=== PATIENT | female | born 1990 | race Caucasian/White ===

== ENCOUNTER 2024-05-08 19:56 | Emergency (ER) | payer BC, OTHER ==
[~2024-05-08] VITALS: Ht 167.6 cm; Wt 180.0 kg
[2024-05-09 00:20] LABS: Chloride 107 mmol/L (98-107); Potassium 4.3 mmol/L (3.5-5.1); Sodium 136 mmol/L (136-145)
[2024-05-09 00:21] LABS: Anion Gap 6 (5-15); Calcium 10.6 mg/dL (8.7-10.4); Carbon Dioxide 23 mmol/L (20-30)
[2024-05-09 00:26] LABS: BUN/Creatinine Ratio 13.3 (10.0-20.0); Blood Urea Nitrogen 11 mg/dL (9-23); Glucose 97 mg/dL (74-106)
[2024-05-09 00:27] LABS: Basophils # (auto) 0.1 10 ^3/uL (0-0.2); Basophils % (auto) 0.4 % (0.0-2.0); Eosinophils # (auto) 0.2 10 ^3/uL (0-0.8); Eosinophils % (auto) 1.5 % (0.0-7.0); Hemoglobin 14.1 g/dL (12.2-16.2); Lymphocytes # (auto) 2.7 10 ^3/uL (0.4-5.4); Lymphocytes % (auto) 22.5 % (10.0-50.0); Mean Corpuscular Hemoglobin 30.9 pg (28.0-32.0); Mean Corpuscular Hgb Conc. 33.7 g/dL (32.0-36.0); Mean Corpuscular Volume 91.8 fL (80.0-100.0); Monocytes # (auto) 0.6 10 ^3/uL (0-1.3); Neutrophils # (auto) 8.5 10 ^3/uL (1.6-8.6); Neutrophils % (auto) 70.6 % (37.0-80.0); Red Blood Cells 4.57 10^6/uL (4.0-5.20); Red Cell Distribution Width 13.7 % (11.8-14.3); White Blood Cell 12.1 10^3/uL (4.4-10.8)
[2024-05-09 01:43] LABS: Urine Bacteria None Seen /hpf (None Seen)
[2024-05-09 01:56] LABS: Urine Blood TRACE /uL (Negative); Urine Clarity Turbid (Clear); Urine Color Light-Yellow (Yellow); Urine Protein, UAD Negative (Negative); Urine Specific Gravity 1.026 (1.001-1.035); Urine Urobilinogen Normal (Negative); Urine WBC 2 /hpf (0 - 5)
[2024-05-09 02:00] VITALS: BP 143/93; PULSE 93; RESP 14; TEMP 97.8; O2SAT 98
== END 2024-05-09 02:15 | disposition home or self-care (01) ==
LOC: ER 19:56 → EDBD 19:56 → ER 05-09 02:15
DX: G93.41 Metabolic encephalopathy (principal); Z88.8 Allergy status to other drugs, medicaments and biological substances
CPT/HCPCS: 36415; 80048; 81001; 81025; 84484; 85025; 93005